=== PATIENT | female | born 1935 | race African-American/Black ===

== ENCOUNTER → 2016-11-13 | Outpatient (CLI) | payer MEDICARE, BC, OTHER ==
--- NOTE | 2016-11-13 16:04 | RAD ---
DATE: 11/13/2016 EXAM: MAMMO MART SCREENING BILATERAL HISTORY: Screening mammogram COMPARISON: Multiple prior examinations including 11/02/2015, 09/29/2013 This study was interpreted with the benefit of Computerized Aided Detection (CAD). The breast parenchyma shows scattered fibroglandular densities. Breast parenchyma level B. FINDINGS: Digital 2-D and 3-D bilateral tomosynthesis CC and MLO views . No suspicious mass, calcification or architectural distortion either breast. No significant change from prior examination. IMPRESSION: No mammographic evidence to suggest malignancy. BI-RADS 1, negative. Routine screening mammogram in 12 months is recommended. BI-RADS CATEGORY: 1 NEGATIVE RECOMMENDED FOLLOW-UP: 12M 12 MONTH FOLLOW-UP PQRS compliance statement: Patient information was entered into a reminder system with a target due date November 2017 for the next mammogram. Mammography is a sensitive method for finding small breast cancers, but it does not detect them all and is not a substitute for careful clinical examination. A negative mammogram does not negate a clinically suspicious finding and should not result in delay in biopsying a clinically suspicious abnormality. "Our facility is accredited by the [employer] Mammography [employer]."
== END | disposition home or self-care (01) ==
LOC: MAMMO 09:40
PROVIDERS: ATTEND Obstetrics & Gynecology
DX: Z12.31 Encounter for screening mammogram for malignant neoplasm of breast (principal)
CPT/HCPCS: 77063; G0202; 77067

== ENCOUNTER → 2017-11-26 | Outpatient (CLI) | payer MEDICARE, BC, OTHER ==
--- NOTE | 2017-11-27 10:04 | RAD ---
DATE: 11/26/2017 EXAM: MAMMO MART SCREENING BILATERAL HISTORY: Routine screening COMPARISON: -17, 11/02/2015, 09/29/2013 This study was interpreted with the benefit of Computerized Aided Detection (CAD). The breast parenchyma is heterogeneously dense, which could reduce sensitivity of mammography. Breast parenchyma level C. FINDINGS: There are no suspicious masses, microcalcifications, or architectural distortion to suggest malignancy in either breast. IMPRESSION: No mammographic evidence for malignancy in either breast. BI-RADS CATEGORY: 1 NEGATIVE RECOMMENDED FOLLOW-UP: 12M 12 MONTH FOLLOW-UP Recommendation: In the absence of new clinical symptoms or change in physical exam, annual screening mammography is recommended. PQRS compliance statement: Patient information was entered into a reminder system with a target due date for the next mammogram. Mammography is a sensitive method for finding small breast cancers, but it does not detect them all and is not a substitute for careful clinical examination. A negative mammogram does not negate a clinically suspicious finding and should not result in delay in biopsying a clinically suspicious abnormality. "Our facility is accredited by the [employer] Mammography [employer]."
== END | disposition home or self-care (01) ==
LOC: MAMMO 10:09
PROVIDERS: ATTEND Obstetrics & Gynecology
DX: Z12.31 Encounter for screening mammogram for malignant neoplasm of breast (principal)
CPT/HCPCS: 77063; 77067

== ENCOUNTER → 2018-11-27 | Outpatient (CLI) | payer MEDICARE, BC, OTHER ==
--- NOTE | 2018-11-30 12:04 | RAD ---
DATE: 11/30/2018. EXAM: MAMMO MART SCREENING BILATERAL HISTORY: Routine screening. COMPARISON: Previous mammogram from 2017 2016. This study was interpreted with the benefit of Computerized Aided Detection (CAD). FINDINGS: Breast Density: SCATTERED The breast parenchyma shows scattered fibroglandular densities. Breast parenchyma level B. The skin and nipples are within normal limits. No suspicious calcifications, spiculated mass or area of architectural distortion. IMPRESSION: No mammographic evidence of malignancy. BI-RADS CATEGORY: 2 BENIGN FINDING(S) RECOMMENDED FOLLOW-UP: 12M 12 MONTH FOLLOW-UP PQRS compliance statement: Patient information was entered into a reminder system with a target due date for the next mammogram. Mammography is a sensitive method for finding small breast cancers, but it does not detect them all and is not a substitute for careful clinical examination. A negative mammogram does not negate a clinically suspicious finding and should not result in delay in biopsying a clinically suspicious abnormality. "Our facility is accredited by the [employer] Mammography [employer]."
== END | disposition home or self-care (01) ==
LOC: MAMMO 09:35
PROVIDERS: ATTEND Family Medicine
DX: Z12.31 Encounter for screening mammogram for malignant neoplasm of breast (principal)
CPT/HCPCS: 77063; 77067

== ENCOUNTER → 2019-12-16 | Outpatient (CLI) | payer MEDICARE, BC, OTHER ==
--- NOTE | 2019-12-16 10:53 | RAD ---
DATE: 12/16/2019 8:45 AM EXAM: MAMMO MART SCREENING BILATERAL HISTORY: Screening COMPARISON: 11/26/2017, 11/27/2018 Bilateral CC and MLO views of the breasts were performed. Bilateral breast tomosynthesis was performed in CC and MLO projections. This study was interpreted with the benefit of Computerized Aided Detection (CAD). FINDINGS: Breast Density: SCATTERED The breast parenchyma shows scattered fibroglandular densities. Breast parenchyma level B No suspicious masses, microcalcifications or architectural distortion is present to suggest malignancy in either breast. The visualized axillae are unremarkable. IMPRESSION: No mammographic evidence of malignancy. BI-RADS CATEGORY: 1 NEGATIVE RECOMMENDED FOLLOW-UP: 12M 12 MONTH FOLLOW-UP Annual screening mammography is recommended, unless clinically indicated sooner based on symptoms or change in physical exam. PQRS compliance statement: Patient information was entered into a reminder system with a target due date for the next mammogram. Mammography is a sensitive method for finding small breast cancers, but it does not detect them all and is not a substitute for careful clinical examination. A negative mammogram does not negate a clinically suspicious finding and should not result in delay in biopsying a clinically suspicious abnormality. "Our facility is accredited by the [employer] Mammography [employer]."
== END | disposition home or self-care (01) ==
LOC: MAMMO 08:31
PROVIDERS: ATTEND Family Medicine
DX: Z12.31 Encounter for screening mammogram for malignant neoplasm of breast (principal)
CPT/HCPCS: 77063; 77067

== ENCOUNTER 2020-04-19 11:37 | Emergency (ER) | payer MEDICARE, BC, OTHER ==
[~2020-04-19] VITALS: Ht 172.7 cm; Wt 80.0 kg
--- NOTE | 2020-04-19 11:57 | PHYS DOC ---
Adult General HPI HPI Patient is a 85-year-old female who presents for left-sided flank pain. Onset was this morning without any known inciting ingestion, trauma or other provoking factor. Nothing known makes better, p.o. intake makes worse. Patient reports dull left-sided flank pain that radiates into left lower quadrant and groin. Associated symptoms include generalized nausea and x2 episodes of nonbloody nonbilious emesis. Episodes of emesis improve patient's pain and discomfort. Denies any fever, known immunodeficiencies, no Covid contact, no URI-like symptoms, no chest pain, shortness of breath, diarrhea, vaginal discharge. She has history of x2 C-sections and subsequent hysterectomy without any other abdominal surgeries Review of Systems Review of Systems Fourteen body systems of review of systems have been reviewed. See HPI for pertinent positives and negative responses, other mcdonald all other systems are negative, non-pertinent or non-contributory Current Medications Current Medications Current Medications Medications (Trade) Dose Ordered Sig/Serafin Start Time Stop Time Status Last Admin Dose Admin Famotidine (Pepcid Vial) 20 mg STK-MED ONCE 04/19/20 15:06 04/19/20 15:06 DC Hydralazine HCl (Apresoline) 20 mg STK-MED ONCE 04/19/20 12:44 04/19/20 12:44 DC Iohexol (Omnipaque 300 Mg/ml) 75 ml 1X ONCE 04/19/20 13:45 04/19/20 13:46 DC 04/19/20 13:46 75 ML Losartan Potassium (Cozaar) 25 mg 1X ONCE 04/19/20 13:00 04/19/20 13:01 DC 04/19/20 13:12 25 MG Morphine Sulfate (Morphine 4mg Syringe) 4 mg STK-MED ONCE 04/19/20 12:44 04/19/20 12:44 DC Physical Exam Physical Exam Constitutional: Well developed, well nourished, no acute distress, non-toxic appearance. HENT: Normocephalic, atraumatic, bilateral external ears normal, oropharynx moist, no oral exudates, nose normal. Eyes: PERRLA, EOMI, conjunctiva normal, no discharge. Neck: Normal range of motion, no tenderness, supple, no stridor. Cardiovascular: Heart rate regular, sinus rhythm, no murmurs rubs or gallops Lungs & Thorax: Bilateral breath sounds clear to auscultation Abdomen: Bowel sounds normal, soft, left upper quadrant pain with palpation without guarding or rebound, no masses, no pulsatile masses. Nonsurgical abdo men, no peritoneal signs Skin: Warm, dry, no erythema, no rash. Back: No tenderness, no CVA tenderness. Extremities: No tenderness, no cyanosis, no clubbing, ROM intact, no edema. Neurologic: Alert and oriented X 3, grossly normal motor & sensory function, no focal deficits noted. Psychologic: Affect normal, judgement normal, mood normal. Current Patient Data Vital Signs Vital Signs Date Time Temp Pulse Resp B/P (MAP) Pulse Ox O2 Delivery O2 Flow Rate FiO2 04/19/20 13:12 86 184/69 04/19/20 11:40 98.4 84 18 210/98 (135) 93 Room Air Lab Results Laboratory Tests Test 04/19/20 12:55 White Blood Count 4.8 x10^3/uL Red Blood Count 3.58 x10^6/uL Hemoglobin 11.4 g/dL Hematocrit 35.1 % Mean Corpuscular Volume 98 fL Mean Corpuscular Hemoglobin 32 pg Mean Corpuscular Hemoglobin Concent 32 g/dL Red Cell Distribution Width 13.8 % Platelet Count 149 x10^3/uL Neutrophils (%) (Auto) 64 % Lymphocytes (%) (Auto) 23 % Monocytes (%) (Auto) 9 % Eosinophils (%) (Auto) 3 % Basophils (%) (Auto) 0 % Neutrophils # (Auto) 3.1 x10^3uL Lymphocytes # (Auto) 1.1 x10^3/uL Monocytes # (Auto) 0.5 x10^3/uL Eosinophils # (Auto) 0.1 x10^3/uL Basophils # (Auto) 0.0 x10^3/uL Sodium Level 140 mmol/L Potassium Level 4.5 mmol/L Chloride Level 107 mmol/L Carbon Dioxide Level 28 mmol/L Anion Gap 5 Blood Urea Nitrogen 28 mg/dL Creatinine 1.3 mg/dL Estimated GFR (Cockcroft-Gault) 47.2 BUN/Creatinine Ratio 22 Glucose Level 144 mg/dL Calcium Level 9.1 mg/dL Total Bilirubin 0.3 mg/dL Aspartate Amino Transf (AST/SGOT) 18 U/L Alanine Aminotransferase (ALT/SGPT) 28 U/L Alkaline Phosphatase 70 U/L Creatine Kinase 168 U/L Total Protein 7.1 g/dL Albumin 3.3 g/dL Albumin/Globulin Ratio 0.9 Lipase 126 U/L Current Medications Medications (Trade) Dose Ordered Sig/Serafin Route PRN Reason Start Time Stop Time Status Last Admin Dose Admin Morphine Sulfate (Morphine 4mg Syringe) 4 mg STK-MED ONCE .ROUTE 04/19/20 12:44 04/19/20 12:44 DC Hydralazine HCl (Apresoline) 20 mg STK-MED ONCE .ROUTE 04/19/20 12:44 04/19/20 12:44 DC Losartan Potassium (Cozaar) 25 mg 1X ONCE PO 04/19/20 13:00 04/19/20 13:01 DC 04/19/20 13:12 25 MG Iohexol (Omnipaque 300 Mg/ml) 75 ml 1X ONCE IV 04/19/20 13:45 04/19/20 13:46 DC 04/19/20 13:46 75 ML Famotidine (Pepcid Vial) 20 mg 1X ONCE IVP 04/19/20 15:00 04/19/20 15:06 DC 04/19/20 15:00 20 MG Famotidine (Pepcid Vial) 20 mg STK-MED ONCE .ROUTE 04/19/20 15:06 04/19/20 15:06 DC EKG EKG EKG ordered and interpreted by myself at 1321 hrs. as sinus rhythm at 76 bpm, unremarkable intervals, no axis deviation, no acute ischemic findings, no STEMI Radiology/Procedures Radiology/Procedures EXAMINATION: XR CHEST 1V CLINICAL HISTORY: Left flank pain EXAM DATE/TIME: 04/19/2020 1:35 PM COMPARISON: None FINDINGS: Lines, Tubes, and Devices: None. Cardiomediastinal Silhouette: Heart size at upper limits of normal. Aortic atherosclerotic calcification. Lungs and Pleura: Mild bibasilar subsegmental atelectasis and/or scarring. No evidence of focal airspace consolidation or pleural effusion. Pulmonary vasculature unremarkable. Bones and Soft Tissues: Degenerative changes of the thoracic spine. IMPRESSION: No evidence of acute cardiopulmonary abnormality. Electronically signed by: Teddy Chandra DO (04/19/2020 2:15 PM) EMIGDIO EXAM: CT Abdomen and Pelvis with IV contrast CLINICAL HISTORY: LEFT FLANK PAIN COMPARISON: none TECHNIQUE: Helical CT of the abdomen and pelvis was performed following the adm inistration of intravenous contrast. Axial, coronal and sagittal reformatted images were generated. PQRS compliance statement - One or more of the following individualized dose reduction techniques were utilized for this study: 1. Automated exposure control 2. Adjustment of the mA and/or kV according to patient size 3. Use of iterative reconstruction technique FINDINGS: Lower chest: 9 mm right lower lobe lung nodule is seen. Wedge-shaped opacities lower lobes likely atelectasis. Abdomen and Pelvis: Peripherally enhancing left hepatic lobe 2 cm lesion consistent with hemangioma. Several additional hypodense hepatic lesions are seen, the larger lesions appear cystic and the smaller lesions are technically too small to characterize but also favored to be cystic. Spleen, adrenal glands, pancreas and gallbladder are normal. No biliary ductal dilatation. Symmetric nephrograms. Right lower pole renal cyst is seen. No hydronephrosis or hydroureter. Bladder is unremarkable. Dense aortic calcifications are seen, particularly in the infrarenal aorta. No abdominal lymphadenopathy by size criteria although several prominent iliac chain and retroperitoneal lymph nodes are seen. Moderate colonic stool content is seen. No small or large bowel dilatation. No bowel obstruction. Appendix is not convincingly seen. Thickening of portions of the stomach are seen. Small high density focus is seen dependently within the stomach. No abdominal or pelvic ascites. Trace fat-containing. Local hernia is seen. Degenerative changes of the spine are seen. Symphysis pubis degenerative changes are noted. Bones: Symphysis pubis degenerative changes are seen. Mild hip joint degenerative changes are seen. Degenerative changes of spine are noted. No aggressive osseous lesion. IMPRESSION: 1. Thickening of portions of the stomach may represent gastritis and can be further assessed by endoscopy as clinically indicated. Small high density focus is seen dependently within the stomach, this may represent recently ingested high density substance such as contrast, iodine or medication. However if there is clinical concern for GI bleed, this may also represent focal luminal contrast extravasation. 2. Moderate colonic stool content is seen. No bowel obstruction. 3. Left hepatic lobe hemangioma. 4. 9 x 6 millimeter right lower lobe lung nodule. Per Fleischner Society guidelines for incidentally found solid nodule measuring 6-8 mm, initial CT follow-up is recommended in 6-12 months. Additional follow-up can be considered in 18-24 month based on risk factors. Electronically signed by: Hilario Valdez MD (04/19/2020 2:23 PM) [id number] Heart Score HEART Score for Chest Pain: HEART Score for Chest Pain Response (Comments) Value History Slighlty/Non-Suspicious 0 ECG Normal 0 Age > 65 2 Risk Factors 1 or 2 Risk Factors 1 Troponin < Normal Limit 0 Total 3 Risk Factors: Risk Factors: DM, Current or recent (<one month) smoker, HTN, HLP, family history of CAD, obesity. Risk Scores: Risk Factors: DM, Current or recent (<one month) smoker, HTN, HLP, family history of CAD, obesity. Course & Med Decision Making Course & Med Decision Making Discussed with the patient all findings and diagnostic testing. I discussed most likely diagnosis of gastritis versus constipation. I did disclose this could be an acute presentation more concerning pathology and so, I stressed need for close outpatient follow-up to review today's ER visit. Supportive care practices advised, I did recommend daily Carafate and use of famotidine. I also advised her to increase daily fiber intake and discussed other supportive care practices to improve patient's noted moderate constipation per CT imaging. Incidental findings on CT imaging disclosed to patient and daughter who is at bedside, they were given copy of CT report and are knowledgeable on need for outpatient follow-up and repeat imaging as recommended. Strict return precautions were also discussed at length with good understanding by patient. Patient voiced understanding and agreement with the plan. Patient knows to come back for repeat evaluation if concerning signs or symptoms present prior to outpatient follow-up. Hemodynamically stable, ambulatory and well-appearing at time of disposition. Dragon Disclaimer Dragon Disclaimer This electronic medical record was generated, in whole or in part, using a voice recognition dictation system. Departure Departure: Impression: Primary Impression: Gastritis Additional Impressions: Constipation Nausea and vomiting in adult Disposition: 01 DC HOME SELF CARE/HOMELESS Condition: IMPROVED Referrals: ILEANA JAFFE MD (PCP) Patient Instructions: Gastritis, Adult Additional Instructions: You were seen for abdominal pain. We are putting you on a medication to reduce your stomach acid levels. You should avoid alcohol, spicy foods, or NSAIDs as these can exacerbate your symptoms. You should follow up with the medicine clinic or your primary medical doctor for further evaluation and treatment. Return to the ED if you develop worsening pain, fever, black or bloody stools, or any other new or concerning symptoms. The medicine we started you on can take a few days to work fully. It was a pleasure to take care of you and I wish you the best going forward Scripts Famotidine (FAMOTIDINE) 20 Mg Tablet 1 TAB PO BID for GASTRITIS, #30 TAB 5 Refills Prov: STEVE GRULLON DO 04/19/20 Problem Qualifiers STEVE GRULLON DO Apr 19, 2020 11:57
[2020-04-19] MEDS ORDERED: MORPHINE SULFATE 4 MG/ML DISP.SYRIN. ONE (12:44)
[2020-04-19] MEDS ORDERED: hydrALAZINE 20 MG/ML VIAL. ONE (12:44)
[2020-04-19] MEDS ORDERED: LOSARTAN 25 MG TABLET. PO ONE (13:00)
[2020-04-19 13:12] VITALS: BP 184/69
[2020-04-19 13:14] LABS: BASO % 0 % (0-3); EOS # 0.1 x10^3/uL (0.0-0.7); EOS % 3 % (0-3); HEMATOCRIT 35.1 % (36.0-47.0); HEMOGLOBIN 11.4 g/dL (12.0-15.5); LYMPH # 1.1 x10^3/uL (1.0-4.8); LYMPH % 23 % (24-48); MEAN CORPUSCULAR HEMOGLOBIN 32 pg (25-35); MEAN CORPUSCULAR HGB CONC 32 g/dL (31-37); MEAN CORPUSCULAR VOLUME 98 fL (79-100); MONO # 0.5 x10^3/uL (0.0-1.1); MONO % 9 % (0-9); NEUT # 3.1 x10^3uL (1.8-7.7); NEUT % 64 % (31-73); PLATELET COUNT 149 x10^3/uL (140-400); RED BLOOD COUNT 3.58 x10^6/uL (3.50-5.40); RED CELL DISTRIBUTION WIDTH 13.8 % (11.5-14.5); WHITE BLOOD COUNT 4.8 x10^3/uL (4.0-11.0)
[2020-04-19 13:21] LABS: CALCIUM 9.1 mg/dL (8.5-10.1); CREATININE 1.3 mg/dL (0.6-1.0); GFR 47.2; POTASSIUM 4.5 mmol/L (3.5-5.1)
[2020-04-19 13:32] LABS: ALBUMIN 3.3 g/dL (3.4-5.0); ALBUMIN/GLOBULIN RATIO 0.9 (1.0-1.7); TOTAL BILIRUBIN 0.3 mg/dL (0.2-1.0); TOTAL PROTEIN 7.1 g/dL (6.4-8.2)
[2020-04-19] MEDS ORDERED: IOHEXOL 300 MG/ML 75 ML VIAL. IV ONE (13:45)
--- NOTE | 2020-04-19 14:17 | RAD ---
EXAMINATION: XR CHEST 1V CLINICAL HISTORY: Left flank pain EXAM DATE/TIME: 04/19/2020 1:35 PM COMPARISON: None FINDINGS: Lines, Tubes, and Devices: None. Cardiomediastinal Silhouette: Heart size at upper limits of normal. Aortic atherosclerotic calcificat ion. Lungs and Pleura: Mild bibasilar subsegmental atelectasis and/or scarring. No evidence of focal airsp colin consolidation or pleural effusion. Pulmonary vasculature unremarkable. Bones and Soft Tissues: Degenerative changes of the thoracic spine. IMPRESSION: No evidence of acute cardiopulmonary abnormality. Electronically signed by: Teddy Chandra DO (04/19/2020 2:15 PM) EMIGDIO
--- NOTE | 2020-04-19 14:25 | RAD ---
EXAM: CT Abdomen and Pelvis with IV contrast CLINICAL HISTORY: LEFT FLANK PAIN COMPARISON: none TECHNIQUE: Helical CT of the abdomen and pelvis was performed following the administration of intrave nous contrast. Axial, coronal and sagittal reformatted images were generated. PQRS compliance statement - One or more of the following individualized dose reduction techniques wer e utilized for this study: 1. Automated exposure control 2. Adjustment of the mA and/or kV according to patient size 3. Use of iterative reconstruction technique FINDINGS: Lower chest: 9 mm right lower lobe lung nodule is seen. Wedge-shaped opacities lower lobes likely atelectasis. Abdomen and Pelvis: Peripherally enhancing left hepatic lobe 2 cm lesion consistent with hemangioma. Several additional h ypodense hepatic lesions are seen, the larger lesions appear cystic and the smaller lesions are techn ically too small to characterize but also favored to be cystic. Spleen, adrenal glands, pancreas and gallbladder are normal. No biliary ductal dilatation. Symmetric nephrograms. Right lower pole renal cyst is seen. No hydronephrosis or hydroureter. Bladder is unremarkable. Dense aortic calcifications are seen, particularly in the infrarenal aorta. No abdominal lymphadenopa thy by size criteria although several prominent iliac chain and retroperitoneal lymph nodes are seen. Moderate colonic stool content is seen. No small or large bowel dilatation. No bowel obstruction. Shamar endix is not convincingly seen. Thickening of portions of the stomach are seen. Small high density fo cus is seen dependently within the stomach. No abdominal or pelvic ascites. Trace fat-containing. Local hernia is seen. Degenerative changes of t he spine are seen. Symphysis pubis degenerative changes are noted. Bones: Symphysis pubis degenerative changes are seen. Mild hip joint degenerative changes are seen. Degenera tive changes of spine are noted. No aggressive osseous lesion. IMPRESSION: 1. Thickening of portions of the stomach may represent gastritis and can be further assessed by endo scopy as clinically indicated. Small high density focus is seen dependently within the stomach, this may represent recently ingested high density substance such as contrast, iodine or medication. Howeve r if there is clinical concern for GI bleed, this may also represent focal luminal contrast extravasa tion. 2. Moderate colonic stool content is seen. No bowel obstruction. 3. Left hepatic lobe hemangioma. 4. 9 x 6 millimeter right lower lobe lung nodule. Per Fleischner Society guidelines for incidentally found solid nodule measuring 6-8 mm, initial CT follow-up is recommended in 6-12 months. Additional follow-up can be considered in 18-24 month based on risk factors. Electronically signed by: Hilario Valdez MD (04/19/2020 2:23 PM) [id number]
--- NOTE | 2020-04-19 14:57 | EKG ---
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
[2020-04-19] MEDS ORDERED: FAMOTIDINE 20 MG/2 ML VIAL IVP ONE (15:00)
[2020-04-19] MEDS ORDERED: FAMOTIDINE 20 MG/2 ML VIAL ONE (15:06)
[2020-04-19] MEDS ORDERED: FAMO20TA5 PO (15:08)
== END 2020-04-19 14:57 | disposition home or self-care (01) ==
LOC: ER 11:37
DX: K29.70 Gastritis, unspecified, without bleeding (principal); K59.00 Constipation, unspecified; R11.2 Nausea with vomiting, unspecified
CPT/HCPCS: 36415; 71045; 74177; 80053; 82550; 83690; 85025; 93005; 96374; 99285; J3490; Q9967

== ENCOUNTER 2020-04-21 10:12 | Emergency (ER) | payer MEDICARE, BC, OTHER ==
[~2020-04-21] VITALS: Ht 172.7 cm; Wt 80.0 kg
[~2020-04-21 10:12] MED LIST: FAMO20TA5 PO
[2020-04-21] MEDS ORDERED: MORPHINE SULFATE 4 MG/ML DISP.SYRIN. IV ONE (10:30)
--- NOTE | 2020-04-21 10:49 | PHYS DOC ---
Past History Past Medical History: Hypertension Past Surgical History: No Surgical History Alcohol Use: None Adult General Chief Complaint Chief Complaint: ABDOMINAL PAIN HPI HPI Patient is a 85-year-old female presenting with for ongoing left-sided abdominal pain. Patient was seen at our facility 48 hours ago, had extensive work-up including laboratory analysis and CT imaging of abdomen and pelvis that was concerning for gastritis. Patient responded to ER intervention and supportive care with treatment towards gastritis with close outpatient follow-up advised. Nonetheless, patient has had ongoing generalized nausea, has had x5 episodes of nonbloody nonbilious emesis and x2 episodes of diarrhea since ER departure 48 hours ago. Nothing known makes better, attempted p.o. intake makes worse. Still denies fever but admits ongoing generalized nausea and abdominal upset. She feels quite weak and dehydrated". Denies any obvious blood loss, syncope, falls, chest pain, shortness of breath, changes in bladder or bowel function Review of Systems Review of Systems Fourteen body systems of review of systems have been reviewed. See HPI for pertinent positives and negative responses, other mcdonald all other systems are negative, non-pertinent or non-contributory Current Medications Current Medications Current Medications Medications (Trade) Dose Ordered Sig/Serafin Start Time Stop Time Status Last Admin Dose Admin Morphine Sulfate (Morphine 4mg Syringe) 4 mg 1X ONCE 04/21/20 10:30 04/21/20 10:45 DC Allergies Allergies Allergies Coded Allergies Type Severity Reaction Last Updated Verified Sulfa (Sulfonamide Antibiotics) Allergy Unknown 04/19/20 Yes Physical Exam Physical Exam Constitutional: Well developed, well nourished, no acute distress, non-toxic appearance. HENT: Normocephalic, atraumatic, bilateral external ears normal, oropharynx dry, no oral exudates, nose normal. Eyes: PERRLA, EOMI, conjunctiva normal, no discharge. Neck: Normal range of motion, no tenderness, supple, no stridor. Cardiovascular: Heart rate regular, sinus rhythm, no murmurs rubs or gallops Lungs & Thorax: Bilateral breath sounds clear to auscultation Abdomen: Bowel sounds normal, soft, left upper quadrant pain with palpation, voluntary guarding present without rebound, no masses, no pulsatile masses. Nonsurgical abdomen, no peritoneal signs Skin: Warm, dry, no erythema, no rash. Back: No tenderness, no CVA tenderness. Extremities: No tenderness, no cyanosis, no clubbing, ROM intact, no edema. Neurologic: Alert and oriented X 3, grossly normal motor & sensory function, no focal deficits noted. Psychologic: Affect normal, judgement normal, mood normal. Current Patient Data Vital Signs Vital Signs Date Time Temp Pulse Resp B/P (MAP) Pulse Ox O2 Delivery O2 Flow Rate FiO2 04/21/20 10:15 98.1 81 15 187/83 (117) 97 Room Air Lab Results Laboratory Tests Test 04/21/20 10:49 04/21/20 12:55 White Blood Count 5.6 x10^3/uL Red Blood Count 3.86 x10^6/uL Hemoglobin 12.5 g/dL Hematocrit 38.2 % Mean Corpuscular Volume 99 fL Mean Corpuscular Hemoglobin 32 pg Mean Corpuscular Hemoglobin Concent 33 g/dL Red Cell Distribution Width 13.7 % Platelet Count 149 x10^3/uL Neutrophils (%) (Auto) 59 % Lymphocytes (%) (Auto) 26 % Monocytes (%) (Auto) 12 % Eosinophils (%) (Auto) 3 % Basophils (%) (Auto) 1 % Neutrophils # (Auto) 3.3 x10^3uL Lymphocytes # (Auto) 1.4 x10^3/uL Monocytes # (Auto) 0.6 x10^3/uL Eosinophils # (Auto) 0.1 x10^3/uL Basophils # (Auto) 0.1 x10^3/uL Sodium Level 140 mmol/L Potassium Level 4.1 mmol/L Chloride Level 104 mmol/L Carbon Dioxide Level 26 mmol/L Anion Gap 10 Blood Urea Nitrogen 25 mg/dL Creatinine 1.4 mg/dL Estimated GFR (Cockcroft-Gault) 43.3 BUN/Creatinine Ratio 18 Glucose Level 181 mg/dL Calcium Level 9.3 mg/dL Total Bilirubin 0.3 mg/dL Aspartate Amino Transf (AST/SGOT) 18 U/L Alanine Aminotransferase (ALT/SGPT) 26 U/L Alkaline Phosphatase 70 U/L Creatine Kinase 145 U/L Troponin I Quantitative < 0.017 ng/mL Total Protein 7.5 g/dL Albumin 3.6 g/dL Albumin/Globulin Ratio 0.9 Lipase 160 U/L Urine Collection Type Unknown Urine Color Yellow Urine Clarity Clear Urine pH 6.0 Urine Specific [place] 1.015 Urine Protein Neg Urine Glucose (UA) Neg mg/dL Urine Ketones (Stick) Neg mg/dL Urine Blood Neg Urine Nitrite Neg Urine Bilirubin Neg Urine Urobilinogen Dipstick 0.2 mg/dL Urine Leukocyte Esterase Neg Urine RBC 0 /HPF Urine WBC 0 /HPF Urine Squamous Epithelial Cells Occ /LPF Urine Bacteria 0 /HPF Current Medications Medications (Trade) Dose Ordered Sig/Serafin Route PRN Reason Start Time Stop Time Status Last Admin Dose Admin Morphine Sulfate (Morphine 4mg Syringe) 4 mg 1X ONCE IV 04/21/20 10:30 04/21/20 10:45 DC 04/21/20 11:23 Sodium Chloride 1,000 ml @ 100 mls/hr 1X ONCE IV 04/21/20 11:30 04/21/20 21:29 04/21/20 11:26 Famotidine (Pepcid Vial) 20 mg 1X ONCE IVP 04/21/20 11:30 04/21/20 11:35 DC 04/21/20 11:31 EKG EKG EKG ordered and interpreted by myself at 1117 hrs. as sinus rhythm at 80 bpm, unremarkable intervals, no axis deviation, no acute ischemic findings, no STEMI Radiology/Procedures Radiology/Procedures EXAM: CT Abdomen and Pelvis with IV contrast CLINICAL HISTORY: LEFT FLANK PAIN COMPARISON: none TECHNIQUE: Helical CT of the abdomen and pelvis was performed following the administration of intravenous contrast. Axial, coronal and sagittal reformatted images were generated. PQRS compliance statement - One or more of the following individualized dose reduction techniques were utilized for this study: 1. Automated exposure control 2. Adjustment of the mA and/or kV according to patient size 3. Use of iterative reconstruction technique FINDINGS: Lower chest: 9 mm right lower lobe lung nodule is seen. Wedge-shaped opacities lower lobes likely atelectasis. Abdomen and Pelvis: Peripherally enhancing left hepatic lobe 2 cm lesion consistent with hemangioma. Several additional hypodense hepatic lesions are seen, the larger lesions appear cystic and the smaller lesions are technically too small to characterize but also favored to be cystic. Spleen, adrenal glands, pancreas and gallbladder are normal. No biliary ductal dilatation. Symmetric nephrograms. Right lower pole renal cyst is seen. No hydronephrosis or hydroureter. Bladder is unremarkable. Dense aortic calcifications are seen, particularly in the infrarenal aorta. No abdominal lymphadenopathy by size criteria although several prominent iliac chain and retroperitoneal lymph nodes are seen. Moderate colonic stool content is seen. No small or large bowel dilatation. No bowel obstruction. Appendix is not convincingly seen. Thickening of portions of the stomach are seen. Small high density focus is seen dependently within the stomach. No abdominal or pelvic ascites. Trace fat-containing. Local hernia is seen. Degenerative changes of the spine are seen. Symphysis pubis degenerative changes are noted. Bones: Symphysis pubis degenerative changes are seen. Mild hip joint degenerative changes are seen. Degenerative changes of spine are noted. No aggressive osseous lesion. IMPRESSION: 1. Thickening of portions of the stomach may represent gastritis and can be further assessed by endoscopy as clinically indicated. Small high density focus is seen dependently within the stomach, this may represent recently ingested high density substance such as contrast, iodine or medication. However if there is clinical concern for GI bleed, this may also represent focal luminal contrast extravasation. 2. Moderate colonic stool content is seen. No bowel obstruction. 3. Left hepatic lobe hemangioma. 4. 9 x 6 millimeter right lower lobe lung nodule. Per Fleischner Society guidelines for incidentally found solid nodule measuring 6-8 mm, initial CT follow-up is recommended in 6-12 months. Additional follow-up can be considered in 18-24 month based on risk factors. Electronically signed by: Hilario Valdez MD (04/19/2020 2:23 PM) [id number] Heart Score HEART Score for Chest Pain: HEART Score for Chest Pain Response (Comments) Value History Slighlty/Non-Suspicious 0 Age > 65 2 Risk Factors >3 Risk Factors or Hx CAD 2 Total 4 Risk Factors: Risk Factors: DM, Current or recent (<one month) smoker, HTN, HLP, family history of CAD, obesity. Risk Scores: Risk Factors: DM, Current or recent (<one month) smoker, HTN, HLP, family history of CAD, obesity. Course & Med Decision Making Course & Med Decision Making Pertinent Labs and Imaging studies reviewed. (See chart for details) Patient discharged from our facility 48 hours ago with supportive care instructions for gastritis and constipation. Still experiencing intractable nausea and vomit, bowel movements have not returned to baseline I contacted GI service at [facility], they agreed need for transfer to their facility for evaluation. Neither of us anticipate need for endoscopy but given patient's ongoing symptoms and a high risk 85-year-old fema le, joint decision made for transfer I contacted hospitalist at [facility] who agreed to accept patient under his care for continued medical management. I updated patient, and daughter on proposed plan of care that included transfer to [facility] for ongoing treatment of patient's gastritis and constipation with plans for GI consultation. All questions and concerns addressed prior to ER transport Dragon Disclaimer Dragon Disclaimer This electronic medical record was generated, in whole or in part, using a voice recognition dictation system. Departure Departure: Impression: Primary Impression: Nausea & vomiting Additional Impressions: Gastritis Constipation Disposition: 02 DC/TRF OTHER SHORT TERM HOS ([facility]) Admitting Physician: Other (DR EPPS) Condition: STABLE Referrals: ILEANA JAFFE MD (PCP) Problem Qualifiers STEVE GRULLON DO Apr 21, 2020 10:49
[2020-04-21 11:18] LABS: BASO # 0.1 x10^3/uL (0.0-0.2); BASO % 1 % (0-3); EOS # 0.1 x10^3/uL (0.0-0.7); EOS % 3 % (0-3); HEMATOCRIT 38.2 % (36.0-47.0); HEMOGLOBIN 12.5 g/dL (12.0-15.5); LYMPH # 1.4 x10^3/uL (1.0-4.8); LYMPH % 26 % (24-48); MEAN CORPUSCULAR HEMOGLOBIN 32 pg (25-35); MEAN CORPUSCULAR HGB CONC 33 g/dL (31-37); MEAN CORPUSCULAR VOLUME 99 fL (79-100); MONO # 0.6 x10^3/uL (0.0-1.1); MONO % 12 % (0-9); NEUT # 3.3 x10^3uL (1.8-7.7); NEUT % 59 % (31-73); PLATELET COUNT 149 x10^3/uL (140-400); RED BLOOD COUNT 3.86 x10^6/uL (3.50-5.40); RED CELL DISTRIBUTION WIDTH 13.7 % (11.5-14.5); WHITE BLOOD COUNT 5.6 x10^3/uL (4.0-11.0)
[2020-04-21 11:25] LABS: CALCIUM 9.3 mg/dL (8.5-10.1); CREATININE 1.4 mg/dL (0.6-1.0); GFR 43.3; POTASSIUM 4.1 mmol/L (3.5-5.1)
[2020-04-21] MEDS ORDERED: FAMOTIDINE 20 MG/2 ML VIAL IVP ONE (11:30)
[2020-04-21] MEDS ORDERED: IV NORMAL SALINE 1,000ML 1,000 ML IV ONE (11:30)
[2020-04-21 11:32] LABS: ALBUMIN 3.6 g/dL (3.4-5.0); ALBUMIN/GLOBULIN RATIO 0.9 (1.0-1.7); TOTAL BILIRUBIN 0.3 mg/dL (0.2-1.0); TOTAL PROTEIN 7.5 g/dL (6.4-8.2)
--- NOTE | 2020-04-21 13:29 | EKG ---
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
[2020-04-21 13:32] LABS: BACTERIA,URINE 0 /HPF (0-FEW); BILIRUBIN,URINE NEG (NEG); CLARITY,URINE CLEAR; COLOR,URINE YELLOW; GLUCOSE,URINE NEG (NEG); NITRITE,URINE NEG (NEG); RBC,URINE 0 /HPF (0-2); SQUAMOUS EPITHELIAL CELL,UR OCC /LPF; UROBILINOGEN,URINE 0.2 mg/dL (0.2 mg/dL); WBC,URINE 0 /HPF (0-4)
[2020-04-21] MEDS ORDERED: POLYETHYLENE GLYCOL 3350 17 GM PACKET. PO PRN (15:15)
[2020-04-21 16:36] VITALS: BP 171/76
[2020-04-21] MEDS ORDERED: ACETAMINOPHEN 325 MG TABLET PO ONE ×2 (16:59→17:15)
== END 2020-04-21 17:05 | disposition short-term general hospital (02) ==
LOC: ER 10:12
DX: K29.70 Gastritis, unspecified, without bleeding (principal); K59.00 Constipation, unspecified; R11.2 Nausea with vomiting, unspecified; I10 Essential (primary) hypertension; Z88.2 Allergy status to sulfonamides
CPT/HCPCS: 36415; 80053; 81001; 82550; 83690; 84484; 85025; 93005; 96361; 96374; 96375; 99285; J2270; J3490; J7030

== ENCOUNTER → 2020-07-19 | Outpatient (CLI) | payer MEDICARE, BC, OTHER ==
--- NOTE | 2020-07-20 12:13 | RAD ---
Bone Densitometry History: Postmenopausal COMPARISON: DEXA scan 12/27/2014 Findings: Bone Densitometry was performed with dual photon absorption of the lumbar spine and proximal femurs. Lumbar Spine: Bone density is 1.299 g/cm2 for L1-L4. T-score is 1.0. Z-score is 1.8. No significant change. Right femoral neck: Bone density is 0.787 g/cm2. T-score is -1.8. Z-score is -0.6. No significant change. IMPRESSION: Normal bone mineral density in the lumbar spine and right hip. World Health Organization definition of osteoporosis and osteopenia for women: normal equal s T score at or above -1.0 standard deviations; osteopenia equals T score between -1.0 and -2.5 stand sandrine deviations; osteoporosis equals T score at or below -2.5 standard deviations. Electronically signed by: Kianna Ramsey MD (07/20/2020 12:11 PM) [id number]
== END ==
LOC: DXRAD 11:43
PROVIDERS: ATTEND Family Medicine
DX: M85.852 Other specified disorders of bone density and structure, left thigh (principal); Z78.0 Asymptomatic menopausal state
CPT/HCPCS: 77080